=== PATIENT | male | born 1930 | race Caucasian/White ===

== ENCOUNTER 2016-07-01 09:18 | Emergency (ER) | payer MEDICARE, OTHER ==
[2016-07-01] MEDS ORDERED: SODIUM CHLORIDE 0.9% 1,000 ML ONE (10:01)
== END 2016-07-01 13:18 | disposition home or self-care (01) ==
LOC: ER 09:18
DX: R07.2 Precordial pain (principal); Z79.899 Other long term (current) drug therapy
CPT/HCPCS: 36415; 71010; 80053; 82550; 83735; 84484; 85025; 85610; 85730; 93005; 96360; 96361